=== PATIENT | male | born 1970 | race Hispanic/Latino ===

== ENCOUNTER 2017-06-08 22:41 | Inpatient (IN) | payer MEDICAID ==
--- NOTE | 2017-06-09 04:16 | C.PDOC ---
History Of Present Illness 46 year old male presents to the ER requesting detox from ETOH. Patient reports he was in rehab and was not drinking for a while, however, he relapsed and began drinking again. Patient informed that there are no detox beds available but states he feels anxious and insists on speaking to crisis. Patient reports he drank beer today, however, it was a less amount than he usually drinks. Denies suicidal ideation or homicidal ideation. Time Seen by Provider: 06/09/17 00:25 Chief Complaint (Nursing): Anxiety History Per: Patient History/Exam Limitations: no limitations Current Symptoms Are (Timing): Still Present Suicide/Self Injury Attempted (Context): None Modifying Factor(s): Alcohol Associated Symptoms: denies: Depression, Suicidal Thoughts Involuntary Hold By: None Recent travel outside of the [place]: No Past Medical History Reviewed: Historical Data, Nursing Documentation, Vital Signs Vital Signs: Last Vital Signs Temp 97.8 F 06/08/17 22:48 Pulse 96 H 06/09/17 02:45 Resp 16 06/09/17 02:45 BP 116/78 06/09/17 02:45 Pulse Ox 96 06/09/17 06:29 - Medical History PMH: Anxiety, Depression Family History: States: Unknown Family Hx - Social History Hx Alcohol Use: Yes Hx Substance Use: No - Immunization History Hx Tetanus Toxoid Vaccination: No Hx Influenza Vaccination: No Hx Pneumococcal Vaccination: No Review Of Systems Constitutional: Negative for: Fever, Chills Gastrointestinal: Negative for: Nausea, Vomiting Psych: Negative for: Suicidal ideation, Other (Homicidal ideation) Physical Exam - Physical Exam Appears: Non-toxic, No Acute Distress, Other (Tearful) Skin: Normal Color, Warm, Dry Head: Atraumatic, Normacephalic Eye(s): bilateral: Normal Inspection Oral Mucosa: Moist Chest: Symmetrical, No Tenderness Cardiovascular: Rhythm Regular Respiratory: Normal Breath Sounds, No Rales, No Rhonchi, No Wheezing Gastrointestinal/Abdominal: Soft, No Tenderness Neurological/Psych: Oriented x3, Normal Speech ED Course And Treatment - Laboratory Results Result Diagrams: 06/09/17 05:50 06/09/17 05:50 O2 Sat by Pulse Oximetry: 96 (Room air) Pulse Ox Interpretation: Normal Progress Note: Librium administered. Case discussed with crisis, who will see patient and states patient does not need blood work or urinalysis. patient was seen by Crisis at 6 am and told that patient now needs labs because 1 bed on detox floor is evalable. Patient was medically cleared for detox admission. However as per crisis we need to wait for the next shift attending for an admission. Disposition - Disposition Disposition: HOSPITALIZED Disposition Time: 07:00 Condition: STABLE Forms: [facility] (U[place]ayan) - Clinical Impression Clinical Impression: Alcohol dependence, Mixed anxiety depressive disorder - PA / GIFTS OFFICER / Resident Statement MD/DO has reviewed & agrees with the documentation as recorded. - Scribe Statement The provider has reviewed the documentation as recorded by the Scribe Heron Tate All medical record entries made by the Scribe were at my direction and personally dictated by me. I have reviewed the chart and agree that the record accurately reflects my personal performance of the history, physical exam, medical decision making, and the department course for this patient. I have also personally directed, reviewed, and agree with the discharge instructions and disposition. Physician Patient Turnover Patient Signed Over To: Anitha Denton Handoff Comments: Pending an admission
[2017-06-09 05:53] LABS: BASO # 0.1 K/uL (0.0-0.2); BASO % 1.1 % (0.0-2.0); EOS # 0.2 K/uL (0.0-0.7); EOS % 2.8 % (0.0-4.0); HEMOGLOBIN 12.6 g/dL (12.0-18.0); LYMPH % 34.3 % (20.0-40.0); MEAN CORPUSCULAR HEMOGLOBIN 24.6 pg (27.0-31.0); MEAN CORPUSCULAR HGB CONC 32.8 g/dL (33.0-37.0); MEAN PLATELET VOLUME 7.9 fL (7.2-11.7); MONO # 0.6 K/uL (0.0-0.8); MONO % 6.9 % (0.0-10.0); NEUT # 4.8 K/uL (1.8-7.0); NEUT % 54.9 % (50.0-75.0); RBC 5.1 Mil/uL (4.40-5.90); RED CELL DISTRIBUTION WIDTH 17.8 % (11.5-14.5); WHITE BLOOD COUNT 8.7 K/uL (4.8-10.8)
[2017-06-09 06:01] LABS: URINE BACTERIA RARE (<OCC); URINE BILIRUBIN NEGATIVE (NEGATIVE); URINE BLOOD NEGATIVE (NEGATIVE); URINE CLARITY Clear (Clear); URINE COLOR Straw (YELLOW); URINE GLUCOSE (UA) NORMAL (Normal); URINE LEUKOCYTE ESTERASE NEG Leu/uL (Negative); URINE PROTEIN NEGATIVE (NEGATIVE); URINE UROBILINOGEN NORMAL mg/dL (0.2-1.0)
[2017-06-09 06:14] LABS: ALB/GLOB RATIO 1.2 (1.0-2.1); ALBUMIN 4.2 g/dL (3.5-5.0); ALT/SGPT 27 U/L (21-72); AST/SGOT 52 U/L (17-59); BLOOD UREA NITROGEN 10 mg/dL (9-20); CALCIUM 8.1 mg/dl (8.6-10.4); GFR AFRICAN-AMERICAN > 60; GFR NON-AFRICAN AMERICAN > 60
[2017-06-09 06:25] LABS: BARBITURATES, UR NEGATIVE (NEGATIVE); BENZODIAZEPINES, UR NEGATIVE (NEGATIVE); OPIATES, UR NEGATIVE (NEGATIVE); PHENCYCLIDINE, UR NEGATIVE (NEGATIVE)
--- NOTE | 2017-06-09 09:47 | PCM.BM ---
<Sara Sorto - Last Filed: 06/09/17 09:46> Treatment assets and liabiliti Patient Assests: cooperative, insightful, motivated, ADL independent Patient Liabilities: financial problems, poor support system, relationship conflicts - Milieu Protocol Maintain good personal hygiene: daily Encourage regular showers, daily Remind patient to perform daily oral care, daily Assist patient to perform ADL's, every shift Encourage regular showers, every shift Remind patient to perform daily oral care, every shift Assist patient to perform ADL's Maintain personal safety: daily Educate patient to report safety concerns to staff, daily Monitor environment for contraband/sharps, every shift Educate patient to report safety concerns to staff, every shift Monitor environment for contraband/sharps Medication safety: Monitor for expected outcome, potential side effects: daily, every shift, Assess barriers to learning: daily, every shift, Assess readiness for medication education: daily, every shift <Manda Agosto - Last Filed: 06/12/17 11:24> Family Contact Family involvement: No known Family/SO - Goals for Treatment Patient goals for treatment: COMPLETE DETOX AND APPLY FOR LONG-TERM REHAB.
[2017-06-09] MEDS: Multiple Vitamins Tab PO SCH (10:40)
--- NOTE | 2017-06-09 14:40 | PCM.PSYCH ---
Initial Psychiatric Evaluation - Initial Psychiatric Evaluation Type of Admission: Voluntary Legal Status: Capacity Chief Complaint (in patient's own words): "I need help." History of Present Illness and Precipitating Events: This is a 46 year old male, who is unemployed, who came to the ED for alcohol detox. Patient states he has been staying at the [facility] for the past three months. A few weeks ago, he started drinking alcohol again while staying at the [facility]. Patient states that people would sneak the alcohol in to the facility and they would drink at night. Patient states he consumes a few pints per day. Patient has previously been to detox twice and rehab twice. Patient denies tobacco use and illicit drug use. Patient states he feels depressed and anxious. He denies suicidal ideation, paranoia, or hallucinations. Patient states he has been hospitalized in [place] in 2008 for depression and anxiety. He currently takes Paxil 20mg for the past 20 years. Patient denies history of suicide attempts. medical history: denies Family history: Mother, Alcohol Use Disorder Psych history: Depression, Anxiety Current Medications: Active Medications Generic Name Dose Route Start Last Admin Trade Name Freq PRN Reason Stop Dose Admin Chlordiazepoxide 25 mg 06/09/17 12:00 06/09/17 11:32 Librium PO 06/14/17 11:59 25 mg Q6H TAYO Administration Taper Chlordiazepoxide 25 mg 06/09/17 09:57 06/09/17 10:41 Librium PO 25 mg Q4H PRN Administration Alcohol Withdrawal Clonidine HCl 0.1 mg 06/09/17 09:57 Catapres PO Q4H PRN Symptoms of alcohol withdrawl Escitalopram Oxalate 10 mg 06/09/17 10:00 06/09/17 10:41 Lexapro PO 10 mg DAILY TAYO Administration Folic Acid 1 mg 06/09/17 10:00 06/09/17 10:40 Folic Acid PO 1 mg DAILY TAYO Administration Gabapentin 300 mg 06/09/17 10:00 06/09/17 13:47 Neurontin PO 300 mg TID TAYO Administration Hydroxyzine HCl 50 mg 06/09/17 09:55 Atarax PO Q6H PRN Anxiety Ibuprofen 600 mg 06/09/17 09:55 Motrin Tab PO Q6H PRN Pain, moderate (4-7) Multivitamins 1 tab 06/09/17 10:00 06/09/17 10:40 Hexavitamin PO 1 tab DAILY TAYO Administration Naltrexone HCl 50 mg 06/09/17 10:15 06/09/17 10:41 Revia PO 50 mg DAILY TAYO Administration Thiamine HCl 100 mg 06/09/17 10:00 06/09/17 10:41 Vitamin B1 Tab PO 100 mg DAILY TAYO Administration Trazodone HCl 50 mg 06/09/17 09:57 Desyrel PO HS PRN Insomnia Past Psychiatric History - Past Psychiatric History Previous Treatment History: Inpatient At [facility]: [place] Nature of Treatment: Depression and Anxiety History of ETOH/Drug Use: Alcohol Use Disorder History of Family Illness: Mother, alcohol use disorder Pertinent Medical Hx (Current Medical&Sleep Prob, Allergies): Allergies Allergy/AdvReac Type Severity Reaction Status Date / Time No Known Allergies Allergy Unverified 06/08/17 22:55 Paxil 06/08/17 Review of Systems - Review of Systems All systems: reviewed and no additional remarkable complaints except - Psychiatric Psychiatric: Anxiety, Depression. absent: Hallucinations, Hopelessness, Paranoia, Suicidal Ideation, Visual Hallucinations, Tactile Hallucinations Mental Status Examination - Personal Presentation Personal Presentation: Looks stated age - Affect Affect: Broad - Motor Activity Motor Activity: Calm - Reliability in Providing Information Reliability in Providing Information: Fair - Speech Speech: Organized - Mood Mood: Neutral - Formal Thought Process Formal Thought Process: No Impairment - Obsessions/Compulsions Obsessions: No Compulsions: No - Cognitive Functions Orientation: Person, Place, Situation Sensorium: Alert - Limitations Limitations: Living alone DSM 5 DX - DSM 5 DSM 5 Diagnosis: Alcohol Use Disorder, severe Alcohol Withdrawal [id number] Depressive d/o - unspecified - Recommended/Plan of Treatment Treatment Recommendations and Plan of Treatment: Start Librium taper Start Lexapro 10mg Gabapentin for augmentation As needed medications All risks, benefits and alternatives of the meds discussed, and the pt agreed and understood. Attend groups and activities Supportive therapy and psychoeducation [place] for abstinence CBT for relapse prevention Encourage MAT Refer to rehab or IOP, and self-help groups 34 min Projected ELOS: 5-6 days Prognosis: good w treatment - Smoking Cessation Smoking Cessation Initiated: Yes
[2017-06-10] MEDS: Multiple Vitamins Tab PO SCH (10:11)
--- NOTE | 2017-06-10 14:17 | PCM.PYCHPN ---
Psychiatric Progress Note - Psychiatric Progress Note Patient seen today, length of contact: 15 minutes Patient Chief Complaint: I'm feeling better. Problems Identified/Issues Discussed: Patient seen, chart reviewed, case discussed with the staff. Issues related to illness and treatment were discussed with the patient and staff. Reported compliant with treatment with no adverse affects. Patient reported feeling better. Mood reported as okay. Affect appropriate. Aftercare discussed with the patient. At the time of evaluation, patient was awake alert oriented 3, no delusions, no auditory visual hallucinations, no suicidal ideations or homicidal ideations. Medical Problems: None reported Diagnostic Results: Reviewed DSM 5 Symptoms Update: Some improvement with treatment Medication Change: No Medical Record Reviewed: Yes Mental Status Examination - Cognitive Function Orientation: Person, Place, Situation, Time Memory: Intact Attention: WNL Concentration: WNL Association: WN Fund of Knowledge: [facility] Decription of patient's judgement and insights: Fair - Mood Mood: Anxious - Affect Affect: Other (Appropriate) - Speech Speech: Appropriate - Formal Thought Process Formal Thought Process: No Impairment Psychotic Thoughts and Behaviors: None - Suicidal Ideation Suicidal Ideation: No - Homicidal Ideation Homicidal Ideation: No Goal/Treatment Plan - Goal/Treatment Plan Need for Continued Stay: Remain at risks for inpatient hospitalization, Discharge may exacerbated symptoms, Severe functional impairment Progress Toward Problem(s) and Goals/Treatment Plan: Patient education Supportive therapy CBT for relapse prevention [place] for abstinence Continue treatment as before Estimated Date of D/C: 06/13/17 - Smoking Cessation Smoking Cessation Initiated: No
--- NOTE | 2017-06-10 17:19 | RAD ---
Chest x-ray two views History: Detox. For aftercare. Comparison: None available. Findings: No focal infiltrate or effusion. Heart size within normal limits. Tortuous aorta. Mammilated right hemidiaphragm. Impression: No focal infiltrate or effusion.
[2017-06-11] MEDS: Multiple Vitamins Tab PO SCH (09:34)
--- NOTE | 2017-06-11 12:59 | PCM.PYCHPN ---
Psychiatric Progress Note - Psychiatric Progress Note Patient seen today, length of contact: 15 minutes Patient Chief Complaint: I'm feeling better. Problems Identified/Issues Discussed: Patient seen, chart reviewed, case discussed with the staff. Issues related to illness and treatment were discussed with the patient and staff. Reported compliant with treatment with no adverse affects. Patient reported feeling better. Mood reported as okay. Affect appropriate. Calm and cooperative with good eye contact. Aftercare discussed with the patient. At the time of evaluation, patient was awake alert oriented 3, no delusions, no auditory visual hallucinations, no suicidal ideations or homicidal ideations. Medical Problems: None reported Diagnostic Results: Reviewed DSM 5 Symptoms Update: Improving with treatment Medication Change: No Medical Record Reviewed: Yes Mental Status Examination - Cognitive Function Orientation: Person, Place, Situation, Time Memory: Intact Attention: WNL Concentration: WNL Association: WNL Fund of Knowledge: WN Decription of patient's judgement and insights: Fair - Mood Mood: Anxious (Much less than before) - Affect Affect: Other (Appropriate) - Speech Speech: Appropriate - Formal Thought Process Formal Thought Process: No Impairment Psychotic Thoughts and Behaviors: None - Suicidal Ideation Suicidal Ideation: No - Homicidal Ideation Homicidal Ideation: No Goal/Treatment Plan - Goal/Treatment Plan Need for Continued Stay: Remain at risks for inpatient hospitalization, Discharge may exacerbated symptoms, Severe functional impairment Progress Toward Problem(s) and Goals/Treatment Plan: Patient education Supportive therapy CBT for relapse prevention [place] for abstinence Continue treatment as before Estimated Date of D/C: 06/13/17 - Smoking Cessation Smoking Cessation Initiated: No
[2017-06-12] MEDS: Multiple Vitamins Tab PO SCH (09:23)
--- NOTE | 2017-06-12 13:10 | PCM.PYCHPN ---
Psychiatric Progress Note - Psychiatric Progress Note Patient seen today, length of contact: 15 minutes Patient Chief Complaint: "I am better" Problems Identified/Issues Discussed: The pt is seen, chart reviewed, case discussed with staff. The pt is compliant with medications and reports no side-effects. Symptoms are improving but needs more time to stabilize. After care discussed, support and psychoeducation given. Medication Change: Yes (detox changes daily) Medical Record Reviewed: Yes Mental Status Examination - Cognitive Function Orientation: Person, Place, Situation, Time Memory: Intact Attention: WNL Concentration: WNL Association: WNL Fund of Knowledge: WNL - Mood Mood: Anxious (Much less than before) - Affect Affect: Other (Appropriate) - Speech Speech: Appropriate - Formal Thought Process Formal Thought Process: No Impairment - Suicidal Ideation Suicidal Ideation: No - Homicidal Ideation Homicidal Ideation: No Goal/Treatment Plan - Goal/Treatment Plan Need for Continued Stay: Remain at risks for inpatient hospitalization, Discharge may exacerbated symptoms, Severe functional impairment Progress Toward Problem(s) and Goals/Treatment Plan: Librium taper Lexapro 10mg Gabapentin for augmentation As needed medications All risks, benefits and alternatives of the meds discussed, and the pt agreed and understood. Attend groups and activities Supportive therapy and psychoeducation [place] for abstinence CBT for relapse prevention Encourage MAT Refer to rehab or IOP, and self-help groups
[2017-06-13] MEDS: Multiple Vitamins Tab PO SCH (09:37)
--- NOTE | 2017-06-13 15:11 | PCM.PYCHPN ---
Psychiatric Progress Note - Psychiatric Progress Note Patient seen today, length of contact: 15 minutes Patient Chief Complaint: "I am better" Problems Identified/Issues Discussed: The pt is seen, chart reviewed, case discussed with staff. Support given, CBT and [place] used briefly No new symptoms reported, improving slowly and needs more time No SEs from medications, risks discussed. After care discussed - [facility] Medication Change: Yes (detox changes daily) Medical Record Reviewed: Yes Mental Status Examination - Cognitive Function Orientation: Person, Place, Situation, Time Memory: Intact Attention: WNL Concentration: WNL Association: WNL Fund of Knowledge: WNL - Mood Mood: Anxious (Much less than before) - Affect Affect: Other (Appropriate) - Speech Speech: Appropriate - Formal Thought Process Formal Thought Process: No Impairment - Suicidal Ideation Suicidal Ideation: No - Homicidal Ideation Homicidal Ideation: No Goal/Treatment Plan - Goal/Treatment Plan Need for Continued Stay: Remain at risks for inpatient hospitalization, Discharge may exacerbated symptoms, Severe functional impairment Progress Toward Problem(s) and Goals/Treatment Plan: Librium taper Lexapro 10mg Gabapentin for augmentation As needed medications All risks, benefits and alternatives of the meds discussed, and the pt agreed and understood. Attend groups and activities Supportive therapy and psychoeducation [place] for abstinence CBT for relapse prevention Encourage MAT Refer to rehab Estimated Date of D/C: 06/14/17
[2017-06-13 17:00] VITALS: O2SAT 95
--- NOTE | 2017-06-14 08:50 | PCM.PYCHDC ---
Mental Status Examination - Mental Status Examination Orientation: Person, Place, Situation, Time Discharge Summary - Discharge Note Psychiatric History (includes Medical, Family, Personal Hx): Depression and Anxiety Consultations:: List each consultation separately and include: 1. Reason for request. 2. Findings. 3. Follow-up Summary of Hospital Course include:: 1. Description of specific treatment plan utilized for patients during their course of treatmen. 2. Summarize the time- course for resolution of acute symptoms and/or regressed behaviors. 3. Describe issues identified and worked on during hospitalization. 4. Describe medication utilized. 5. Describe medical problems identified and treated. 6. Reassessment of suicide risk Summary of Hospital Course: This is a 46 year old male, who is unemployed, who came to the ED for alcohol detox. Patient states he has been staying at the [facility] for the past three months. A few weeks ago, he started drinking alcohol again while staying at the [facility]. Patient states that people would sneak the alcohol in to the facility and they would drink at night. Patient states he consumes a few pints per day. Patient has previously been to detox twice and rehab twice. Patient denies tobacco use and illicit drug use. Patient states he feels depressed and anxious. He denies suicidal ideation, paranoia, or hallucinations. Patient states he has been hospitalized in [place] in 2008 for depression and anxiety. He currently takes Paxil 20mg for the past 20 years. Patient denies history of suicide attempts. medical history: denies Family history: Mother, Alcohol Use Disorder Psych history: Depression, Anxiety [facility] short term rehab, with a possibility of switching to LT. - Final Diagnosis (DSM 5) Condition upon Discharge: STABLE Disposition: HOME/ ROUTINE Follow-up Treatment Plan: Librium taper Lexapro 10mg Gabapentin for augmentation As needed medications All risks, benefits and alternatives of the meds discussed, and the pt agreed and understood. Attend groups and activities Supportive therapy and psychoeducation [place] for abstinence CBT for relapse prevention Encourage MAT Refer to rehab Prescriptions/Medication Reconciliation: Escitalopram [Lexapro] 10 mg PO DAILY #30 tab Gabapentin [Neurontin] 300 mg PO TID #90 cap hydrOXYzine HCl [Atarax] 50 mg PO DAILY PRN #30 tab PRN Reason: Anxiety Naltrexone [Revia] 50 mg PO DAILY #30 tab traZODone [Desyrel] 50 mg PO HS PRN #30 tab PRN Reason: Insomnia
[2017-06-14 09:01] VITALS: BP 101/65; PULSE 83; RESP 20; TEMP 97.6
[2017-06-14] MEDS: Multiple Vitamins Tab PO SCH (09:08)
== END 2017-06-14 09:00 | disposition home or self-care (01) | DRG 751 ==
LOC: C.ER 22:41 → C.7D 06-09 08:22
PROVIDERS: ADMIT Psychiatry & Neurology Psychiatry; ATTEND Psychiatry & Neurology Psychiatry
PROC: HZ2ZZZZ Detoxification Services for Substance Abuse Treatment (ICD-10-PCS; principal; 2017-06-09)
DX: F10.239 Alcohol dependence with withdrawal, unspecified (principal); F41.1 Generalized anxiety disorder; F32.9 Major depressive disorder, single episode, unspecified; Z56.0 Unemployment, unspecified